=== PATIENT | female | born 1995 | race Two or more races ===

== ENCOUNTER 2021-07-12 13:28 | Emergency (ER) | payer OTHER ==
[~2021-07-12] VITALS: Ht 162.6 cm; Wt 54.4 kg
[2021-07-12] MEDS ORDERED: ZYRTEC10 M3 PO (17:08)
[2021-07-12] MEDS ORDERED: DICLOFENAC POTA25 MG PO (17:08)
== END 2021-07-12 17:48 | disposition home or self-care (01) ==
LOC: ER 13:28
DX: J32.9 Chronic sinusitis, unspecified (principal); R51.9 Headache, unspecified